=== PATIENT | female | born 1955 | race Caucasian/White ===

== ENCOUNTER → 2017-12-11 | Day surgery (SDC) | payer OTHER ==
[~2017-12-11] VITALS: Ht 160 cm; Wt 56.7 kg
--- NOTE | 2017-12-11 07:39 | Operative Report ---
Operative/Inv Procedure Report Surgery Date: 12/11/17 Name of Procedure: Right carpal tunnel release, right index and long trigger finger release Pre-Operative Diagnosis: Right carpal tunnel syndrome, right index and long trigger finger Post-Operative Diagnosis: Right carpal tunnel syndrome, right index and long trigger finger Estimated Blood Loss: guille Surgeon/Junior Account Executive: Nadir Pope MD Anesthesia: laryngeal mask airway Complications: None Condition: Stable to PACU Operative/Procedure Note Note: The patient was taken to the operating room and placed supine on the operating room table. A tourniquet was applied to the arm above the elbow. The upper extremity was prepped and draped in the normal sterile fashion. The patient received IV antibiotics prior to incision. A time out was performed and the site marking was also visualized prior to incision. An Esmarch was used to exsanguinate the extremity. The tourniquet was inflated. A transverse incision was then made overlying the A1 baltazar of the index and long fingers. The soft tissue was then dissected longitudinally in line with the A1 baltazar. Care was taken to protect the neurovascular structures on either side of the A1 baltazar. The A1 baltazar was incised. Care was taken to protect the A-2 baltazar distally. The palmar aponeurosis was then released proximally. The tendons were delivered into the wound and no triggering was noted. The same procedure was performed for both the index and long fingers. The skin was then closed with 3-0 nylon suture in a simple interrupted fashion. An incision was made extending from the distal wrist crease starting overlying the palmaris longus tendon in line with the fourth ray. This extended 2.5 cm. Care was taken not to cross Alicea's cardinal line. Fat was also reflected at this time and the palmar fascia was incised. Next the transverse carpal ligament was incised. A Harwich elevator was inserted deep to the ligament to protect the contents of the carpal tunnel. A knife was then used to release the ligament further distally. Next scissors were used to extend the release distally until the palmar fat was approached, taking care to protect the superficial palmar arch. The transverse carpal ligament was then incised proximally. The volar forearm fascia was released. Once the release was complete the wound was copiously irrigated. The incisions were closed with 3-0 nylon suture in a simple interrupted fashion. 0.25% Marcaine was then injected to anesthetize the wound. A dry sterile dressing was applied and the patient was transferred to PACU in stable condition.
== END ==
LOC: STS 05:11
DX: G56.01 Carpal tunnel syndrome, right upper limb (principal); M65.321 Trigger finger, right index finger; M65.331 Trigger finger, right middle finger; M19.041 Primary osteoarthritis, right hand; J45.909 Unspecified asthma, uncomplicated; Z22.322 Carrier or suspected carrier of Methicillin resistant Staphylococcus aureus; I10 Essential (primary) hypertension; K21.9 Gastro-esophageal reflux disease without esophagitis; K50.90 Crohn's disease, unspecified, without complications
CPT/HCPCS: J2250